=== PATIENT | male | born 1945 | race Caucasian/White ===

== ENCOUNTER → 2016-09-15 | Outpatient (CLI) | payer OTHER ==
[~2016-09-15] MED LIST: OPTIRAY 320 IV PRN
--- NOTE | 2016-09-15 12:17 | DIAGNOSTIC IMAGING REPORT ---
CT OF THE CHEST WITH IV CONTRAST CLINICAL HISTORY: Rectal cancer. COMPARISON STUDY: No previous studies for comparison. TECHNIQUE: Following IV administration of 92 mL of Optiray-320, helical axial images of the chest were obtained. Images were viewed in the axial, sagittal and coronal planes. IV contrast was administered without complication. FINDINGS: No enlarged axillary, mediastinal or hilar lymph nodes are present. The size of the heart is normal. There are no suspicious pulmonary nodules. Mild emphysema is present. No suspicious osseous lesions are present. There is no consolidation. The abdomen and pelvis will be reported separately. However, a 3.2 cm caudate lobe hemangioma is unchanged since CT of October 23, 2015. IMPRESSION: No evidence of metastatic disease within the chest. Electronically signed by: Naeem Veronica M.D. 09/15/2016 12:15 PM Dictated Date/Time: 09/15/2016 12:09 PM
--- NOTE | 2016-09-15 12:28 | DIAGNOSTIC IMAGING REPORT ---
ABDOMEN AND PELVIS CT WITH IV AND ORAL CONTRAST CT DOSE: 593.63 mGy.cm HISTORY: Rectal carcinoma HX OF RECTAL CA TECHNIQUE: Multiaxial CT images of the abdomen and pelvis were performed following the use of intravenous and oral contrast. COMPARISON STUDY: 10/23/2015 FINDINGS: Lung bases remain clear. The hepatic hypodensities and or hemangiomas remains stable Kidneys enhance uniformly. No evidence for hydronephrosis. Spleen pancreas are within normal limits. No significant retroperitoneal or adenopathy. Postoperative changes consistent with colectomy and ileostomy are again noted. Prostate is midline. Bladder is unremarkable. Bowel pattern overall is considered nonobstructive. Bony structures show moderate degenerative change. A true lytic or blastic process is not appreciated. IMPRESSION: 1. Stable evaluation of the abdomen and pelvis compared to the prior study. 2. No evidence for metastatic disease. Electronically signed by: Tree Meredith M.D. 09/15/2016 12:26 PM Dictated Date/Time: 09/15/2016 12:18 PM
== END | disposition home or self-care (01) ==
LOC: C.CTS 11:22
PROVIDERS: ATTEND Colon & Rectal Surgery
DX: C20 Malignant neoplasm of rectum (principal); Z68.24 Body mass index [BMI] 24.0-24.9, adult

== ENCOUNTER → 2016-11-12 | Outpatient (CLI) | payer OTHER ==
[2016-11-12 14:53] LABS: CHOLESTEROL/HDL RATIO 6.3; PROSTATE SPECIFIC ANTIGEN 4.67 ng/ml (0.000-4.000)
== END | disposition home or self-care (01) ==
LOC: C.LABMFLN 09:13
PROVIDERS: ATTEND Family Medicine
DX: E78.00 Pure hypercholesterolemia, unspecified (principal); Z12.5 Encounter for screening for malignant neoplasm of prostate

== ENCOUNTER 2017-10-22 11:07 | Inpatient (IN) | payer OTHER ==
[~2017-10-22] VITALS: Ht 170.2 cm; Wt 72.0 kg
[2017-10-22] MEDS ORDERED: DSY/150 PO (11:44)
[2017-10-22] MEDS ORDERED: ONDANSETRON INJ 2 MG/ML 2 ML VIAL ONE (11:49)
[2017-10-22] MEDS ORDERED: SODIUM CHLORIDE 0.9% 1000ML 1,000 ML IV STA ×2 (11:53)
[2017-10-22] MEDS ORDERED: MoRPHine SULFATE 4 MG/ML 1 ML CARP\\VIAL ONE (11:53)
--- NOTE | 2017-10-22 11:59 | EMERGENCY ROOM VISIT NOTE ---
History Report prepared by Joyce: Alejandro Auguste Under the Supervision of: Dr. Kvng Gamboa D.O. First contact with patient: 11:34 Chief Complaint: VOMITING Stated Complaint: ABDOMINAL BLOATING AND VOMITING SINCE YESTERDAY History of Present Illness The patient is a 72 year old male who presents to the Emergency Room with complaints of persistent vomiting that began last night. The patient is also complaining of centralized abdominal pain and distention. The patient has a history of colorectal cancer with surgery for ostomy placement. His family at bedside notes that he has had several surgeries due to complications of his ostomy bag, but he has never had any bowel obstructions. He is currently not having any output into the bag. Source of History: patient, family Onset: Last night Position: abdomen Quality: other (Vomiting) Timing: other (Persistent) Associated Symptoms: + abdominal pain Review of Systems See HPI for pertinent positives & negatives. A total of 10 systems reviewed and were otherwise negative. Past Medical & Surgical Hx of Colorectal cancer. Family History Omitted secondary to age. Social History Smoking Status: Current Every Day Smoker Marital Status: Housing Status: lives with family Occupation Status: retired Current/Historical Medications Scheduled Trazodone HCl (Trazodone HCl), 150 MG PO HS Allergies Coded Allergies: No Known Allergies (Unverified , 10/22/17) Physical Exam Vital Signs Date Time Temp Pulse Resp B/P (MAP) Pulse Ox O2 Delivery O2 Flow Rate FiO2 10/22/17 13:40 94 Room Air 10/22/17 13:00 74 18 10/22/17 12:33 77 10/22/17 12:04 94 Room Air 10/22/17 11:10 36.7 82 16 133/88 94 Room Air Physical Exam GENERAL: Patient is awake, alert, and very anxious. Appears to be in significant distress. EYES: The conjunctivae are clear. The pupils are round and reactive. EARS, NOSE, MOUTH AND THROAT: The nose is without any evidence of any deformity. Mucous membranes are moist tongue is midline NECK: The neck is nontender and supple. RESPIRATORY: Normal respiratory effort is noted there is no evidence of wheezing rhonchi or rales CARDIOVASCULAR: Regular rate and rhythm noted there no murmurs rubs or gallops normal S1 normal S2 GASTROINTESTINAL: The abdomen moderately distended and diffusely tender. There is an ostomy bag present in the mid lower abdomen with very little output. Bowel sounds are present in all quadrants. Abdomen is nontender MUSCULOSKELETAL/EXTREMITIES: There is no evidence of gross deformity full range of motion is noted in the hips and shoulders SKIN: There is no obvious evidence of any rash. There are no petechiae, pallor or cyanosis noted. NEUROLOGIC: Patient is awake alert and oriented x3 Medical Decision & Procedures ER Provider Diagnostic Interpretation: Radiology results as stated below per my review and radiologist interpretation: ABD/PELVIS NO IV OR ORAL CONT CLINICAL HISTORY: 72 years-old Male presenting with vomiting, history of rectal cancer. TECHNIQUE: Multidetector CT of the abdomen and pelvis was performed without the use of intravenous contrast. IV contrast: None. A dose lowering technique was used consistent with the principles of ALARA (as low as reasonably achievable). COMPARISON: 09/15/2016. CT DOSE (mGy.cm): The estimated cumulative dose is 505.56 mGy.cm. FINDINGS: Entry Level Chemist topogram: Unremarkable. Lung bases: Minimal basilar opacities, likely atelectasis. Normal heart size. No pericardial or pleural effusion. Liver: Normal morphology. Borderline hepatic steatosis. Biliary: No gross biliary ductal dilatation allowing for noncontrast technique. Normal gallbladder. Pancreas: Mild parenchymal atrophy. Spleen: Normal noncontrast appearance. Adrenal glands: Normal noncontrast appearance. Kidneys and ureters: Hypodensity in the left kidney is indeterminate but likely a cyst. Moderate perinephric fat stranding, nonspecific. No hydronephrosis. No nephrolithiasis. Normal ureters. Bladder: Incompletely evaluated secondary to underdistention. Pelvic organs: Prostate enlargement likely secondary to benign prostatic hyperplasia. Bowel: Postsurgical changes of low anterior resection. An enteroenteric anastomosis in the right lower quadrant is widely patent. Postsurgical changes of total proctocolectomy. A right lower quadrant ileostomy is evident. Distal loops of small bowel appear adhesed to the posterior peritoneum in the presacral region. There is dilated small bowel proximal to this. The duodenum and proximal jejunum are nondistended. Dilated bowel tapers fairly smoothly to a less dilated caliber in the right anterior mid abdomen (series 3 image 248). Downstream there is more abrupt transition of small bowel caliber. Given the absence of intravenous and oral contrast, the specific site of transition is somewhat poorly defined but suspected to be in the presacral region. Peritoneal cavity: No free fluid or intraperitoneal gas. Lymph nodes: No gross lymphadenopathy allowing for noncontrast technique. Vasculature: Atherosclerosis of the normal caliber abdominal aorta. Abdominal wall: No fluid or hernia associated with the right lower quadrant ileostomy. Postsurgical changes of the left lower quadrant also evident. Bilateral gynecomastia. Musculoskeletal: Degenerative changes of the spine. IMPRESSION: 1. Postsurgical changes of total proctocolectomy with a right lower quadrant ileostomy. Evidence of a small bowel obstruction likely due to adhesions in the pelvis in the presacral region. No convincing evidence of a closed loop obstruction. Enteroenteric anastomosis widely patent. No evidence of perforation. Electronically signed by: Barry Clay M.D. 10/22/2017 12:36 PM Dictated Date/Time: 10/22/2017 12:25 PM CHEST ONE VIEW PORTABLE CLINICAL HISTORY: 72 years-old Male presenting with EVALUATE ALTERED MENTAL STATUS/WEAKNESS. TECHNIQUE: Portable upright AP view of the chest was obtained. COMPARISON: Chest CT from 09/15/2016. FINDINGS: Cardiomediastinal silhouette normal. No focal opacity. No large effusion or pneumothorax. Degenerative changes of the bilateral glenohumeral joints. Upper abdomen normal. IMPRESSION: 1. No acute cardiopulmonary disease. Electronically signed by: Barry Clay M.D. 10/22/2017 12:13 PM Dictated Date/Time: 10/22/2017 12:12 PM Laboratory Results 10/22/17 12:00 Red Blood Count 5.67, Mean Corpuscular Volume 87.3, Mean Corpuscular Hemoglobin 31.0, Mean Corpuscular Hemoglobin Concent 35.6, Mean Platelet Volume 10.0, Neutrophils (%) (Auto) 78.0, Lymphocytes (%) (Auto) 11.9, Monocytes (%) (Auto) 8.5, Eosinophils (%) (Auto) 1.1, Basophils (%) (Auto) 0.2, Neutrophils # (Auto) 9.80, Lymphocytes # (Auto) 1.49, Monocytes # (Auto) 1.07, Eosinophils # (Auto) 0.14, Basophils # (Auto) 0.02 10/22/17 12:00 Test 10/22/17 12:00 White Blood Count 12.56 K/uL (4.8-10.8) Red Blood Count 5.67 M/uL (4.7-6.1) Hemoglobin 17.6 g/dL (14.0-18.0) Hematocrit 49.5 % (42-52) Mean Corpuscular Volume 87.3 fL (80-100) Mean Corpuscular Hemoglobin 31.0 pg (25-34) Mean Corpuscular Hemoglobin Concent 35.6 g/dl (32-36) Platelet Count 221 K/uL (130-400) Mean Platelet Volume 10.0 fL (7.4-10.4) Neutrophils (%) (Auto) 78.0 % Lymphocytes (%) (Auto) 11.9 % Monocytes (%) (Auto) 8.5 % Eosinophils (%) (Auto) 1.1 % Basophils (%) (Auto) 0.2 % Neutrophils # (Auto) 9.80 K/uL (1.4-6.5) Lymphocytes # (Auto) 1.49 K/uL (1.2-3.4) Monocytes # (Auto) 1.07 K/uL (0.11-0.59) Eosinophils # (Auto) 0.14 K/uL (0-0.5) Basophils # (Auto) 0.02 K/uL (0-0.2) RDW Standard Deviation 42.2 fL (36.4-46.3) RDW Coefficient of Variation 13.3 % (11.5-14.5) Immature Granulocyte % (Auto) 0.3 % Immature Granulocyte # (Auto) 0.04 K/uL (0.00-0.02) Prothrombin Time 10.4 SECONDS (9.0-12.0) Prothromb Time International Ratio 1.0 (0.9-1.1) Activated Partial Thromboplast Time 28.2 SECONDS (21.0-31.0) Partial Thromboplastin Ratio 1.1 Anion Gap 7.0 mmol/L (3-11) Est Creatinine Clear Calc Drug Dose 49.3 ml/min Estimated GFR () 66.6 Estimated GFR (Non- 57.5 BUN/Creatinine Ratio 10.6 (10-20) Calcium Level 10.2 mg/dl (8.5-10.1) Phosphorus Level 2.6 mg/dl (2.5-4.9) Magnesium Level 2.4 mg/dl (1.8-2.4) Total Bilirubin 0.7 mg/dl (0.2-1) Direct Bilirubin 0.2 mg/dl (0-0.2) Aspartate Amino Transf (AST/SGOT) 15 U/L (15-37) Alanine Aminotransferase (ALT/SGPT) 27 U/L (12-78) Alkaline Phosphatase 98 U/L (45-117) Total Creatine Kinase 87 U/L (39-308) Creatine Kinase MB 2.4 ng/ml (0.5-3.6) Creatine Kinase MB Ratio 2.8 (0-3.0) Troponin I < 0.015 ng/ml (0-0.045) Pro-B-Type Natriuretic Peptide 123 pg/ml (0-900) Total Protein 9.1 gm/dl (6.4-8.2) Albumin 4.3 gm/dl (3.4-5.0) Lipase 99 U/L (73-393) Thyroid Stimulating Hormone (TSH) 0.887 uIu/ml (0.300-4.500) Laboratory results per my review. Medications Administered Medications (Trade) Dose Ordered Sig/Alanna Route Start Time Stop Time Status Last Admin Dose Admin Ondansetron HCl (Zofran Inj) 4 mg STK-MED ONCE .ROUTE 10/22/17 11:49 10/22/17 11:50 DC 10/22/17 11:49 4 MG Morphine Sulfate (MoRPHine SULFATE INJ) 4 mg STK-MED ONCE .ROUTE 10/22/17 11:53 10/22/17 11:54 DC 10/22/17 11:53 4 MG Sodium Chloride 1,000 ml @ 999 mls/hr Q1H1M STAT IV 10/22/17 11:53 10/22/17 12:53 DC 10/22/17 11:53 999 MLS/HR ECG Per My Interpretation Indication: vomiting Rate (beats per minute): 79 Rhythm: sinus rhythm Findings: PVC, ST depression (Lateral) Comparison ECG Date: no prior available ED Course 1144: The patient was evaluated in room B10. A complete history and physical examination were performed. 1149: Ordered Zofran 4 mg. 1153: Ordered Sodium Chloride 1000 mL @ 250 mL/hr IV, Sodium Chloride 1000 mL @ 999 mL/hr IV. 1153: Ordered Morphine Sulfate 1308: I discussed the case with Dr. Socorro Moreno - [facility]. She will evaluate the patient, but requests I discuss the case with Surgery first. 1326: I discussed with Dr. Ellen Butler. He said he will follow in consultation. Medical Decision Differential diagnosis: Etiologies such as gastroenteritis, food borne illness, infections, appendicitis , diverticulitis, inflammatory bowel disease, obstruction, GI bleed, biliary pathology, as well as others were entertained. Nursing notes reviewed. The patient is a 72-year-old male who presented to the emergency department for an evaluation of nausea and vomiting. The patient had very distended abdomen. He has an ostomy for previous surgery for colorectal cancer. The patient has noticed decreased output in his ostomy. The patient was found to have signs of bowel obstruction. He was treated with IV fluids IV pain medicine and IV anti- medics. On subsequent reevaluation he was significantly improved. I discussed his case with the on-call [facility] hospitalist as well as the on-call general surgeon. Medication Reconcilliation Current Medication List: was personally reviewed by me Blood Pressure Screening Patient's blood pressure: Normal blood pressure Consults Time Called: 1305 Consulting Physician: Dr. Socorro Braga Returned Call: 1308 I discussed the case with Dr. Socorro Braga. She will evaluate the patient, but requests I discuss the case with Surgery first. Additional Consults: Time Called: 1310 Consulted Physician: Dr. Ellen Butler Returned Call: 1326 Additional Comments: I discussed with Dr. Ellen Butler. He said he will follow in consultation. Impression Primary Impression: SBO (small bowel obstruction) Additional Impressions: Abdominal pain Nausea, vomiting, and diarrhea Scribe Attestation The scribe's documentation has been prepared under my direction and personally reviewed by me in its entirety. I confirm that the note above accurately reflects all work, treatment, procedures, and medical decision making performed by me. Departure Information Dispostion Being Evaluated By Hospitalist Kingston Orta M.D. (PCP) Patient Instructions My [facility] Problem Qualifiers Additional Impressions: Abdominal pain Abdominal location: generalized Qualified Codes: R10.84 - Generalized abdominal pain
[2017-10-22] MEDS ORDERED: MoRPHine SULFATE 4 MG/ML 1 ML CARP\\VIAL IV PRN ×2 (12:00→14:15)
[2017-10-22 12:10] LABS: BASO % 0.2 %; BASO ABS # 0.02 K/uL (0-0.2); EOS % 1.1 %; EOS ABS # 0.14 K/uL (0-0.5); HEMATOCRIT 49.5 % (42-52); HEMOGLOBIN 17.6 g/dL (14.0-18.0); IG# 0.04 K/uL (0.00-0.02); LYMPH % 11.9 %; LYMPH ABS # 1.49 K/uL (1.2-3.4); MEAN CELL VOLUME 87.3 fL (80-100); MEAN CORPUSCULAR HGB CONC 35.6 g/dl (32-36); MONO % 8.5 %; MONO ABS # 1.07 K/uL (0.11-0.59); PLATELET COUNT 221 K/uL (130-400); RED CELL DISTRIBUTION WIDTH CV 13.3 % (11.5-14.5); RED CELL DISTRIBUTION WIDTH SD 42.2 fL (36.4-46.3); WHITE BLOOD COUNT 12.56 K/uL (4.8-10.8)
--- NOTE | 2017-10-22 12:15 | DIAGNOSTIC IMAGING REPORT ---
CHEST ONE VIEW PORTABLE CLINICAL HISTORY: 72 years-old Male presenting with EVALUATE ALTERED MENTAL STATUS/WEAKNESS. TECHNIQUE: Portable upright AP view of the chest was obtained. COMPARISON: Chest CT from 09/15/2016. FINDINGS: Cardiomediastinal silhouette normal. No focal opacity. No large effusion or pneumothorax. Degenerative changes of the bilateral glenohumeral joints. Upper abdomen normal. IMPRESSION: 1. No acute cardiopulmonary disease. Electronically signed by: Barry Clay M.D. 10/22/2017 12:13 PM Dictated Date/Time: 10/22/2017 12:12 PM
[2017-10-22 12:19] LABS: PTT PATIENT 28.2 SECONDS (21.0-31.0)
[2017-10-22 12:37] LABS: ALBUMIN 4.3 gm/dl (3.4-5.0); ALKALINE PHOSPHATASE 98 U/L (45-117); ALT/SGPT 27 U/L (12-78); AST/SGOT 15 U/L (15-37); BLOOD UREA NITROGEN 13 mg/dl (7-18); CALCIUM 10.2 mg/dl (8.5-10.1); CARBON DIOXIDE 25 mmol/L (21-32); CKMB 2.4 ng/ml (0.5-3.6); CREATININE 1.23 mg/dl (0.60-1.40); GLUCOSE 114 mg/dl (70-99); LIPASE 99 U/L (73-393); PHOSPHORUS 2.6 mg/dl (2.5-4.9); POTASSIUM 3.7 mmol/L (3.5-5.1); SODIUM 137 mmol/L (136-145); TOTAL PROTEIN 9.1 gm/dl (6.4-8.2)
--- NOTE | 2017-10-22 12:37 | DIAGNOSTIC IMAGING REPORT ---
ABD/PELVIS NO IV OR ORAL CONT CLINICAL HISTORY: 72 years-old Male presenting with vomiting, history of rectal cancer. TECHNIQUE: Multidetector CT of the abdomen and pelvis was performed without the use of intravenous contrast. IV contrast: None. A dose lowering technique was used consistent with the principles of ALARA (as low as reasonably achievable). COMPARISON: 09/15/2016. CT DOSE (mGy.cm): The estimated cumulative dose is 505.56 mGy.cm. FINDINGS: Wafer Polisher topogram: Unremarkable. Lung bases: Minimal basilar opacities, likely atelectasis. Normal heart size. No pericardial or pleural effusion. Liver: Normal morphology. Borderline hepatic steatosis. Biliary: No gross biliary ductal dilatation allowing for noncontrast technique. Normal gallbladder. Pancreas: Mild parenchymal atrophy. Spleen: Normal noncontrast appearance. Adrenal glands: Normal noncontrast appearance. Kidneys and ureters: Hypodensity in the left kidney is indeterminate but likely a cyst. Moderate perinephric fat stranding, nonspecific. No hydronephrosis. No nephrolithiasis. Normal ureters. Bladder: Incompletely evaluated secondary to underdistention. Pelvic organs: Prostate enlargement likely secondary to benign prostatic hyperplasia. Bowel: Postsurgical changes of low anterior resection. An enteroenteric anastomosis in the right lower quadrant is widely patent. Postsurgical changes of total proctocolectomy. A right lower quadrant ileostomy is evident. Distal loops of small bowel appear adhesed to the posterior peritoneum in the presacral region. There is dilated small bowel proximal to this. The duodenum and proximal jejunum are nondistended. Dilated bowel tapers fairly smoothly to a less dilated caliber in the right anterior mid abdomen (series 3 image 248). Downstream there is more abrupt transition of small bowel caliber. Given the absence of intravenous and oral contrast, the specific site of transition is somewhat poorly defined but suspected to be in the presacral region. Peritoneal cavity: No free fluid or intraperitoneal gas. Lymph nodes: No gross lymphadenopathy allowing for noncontrast technique. Vasculature: Atherosclerosis of the normal caliber abdominal aorta. Abdominal wall: No fluid or hernia associated with the right lower quadrant ileostomy. Postsurgical changes of the left lower quadrant also evident. Bilateral gynecomastia. Musculoskeletal: Degenerative changes of the spine. IMPRESSION: 1. Postsurgical changes of total proctocolectomy with a right lower quadrant ileostomy. Evidence of a small bowel obstruction likely due to adhesions in the pelvis in the presacral region. No convincing evidence of a closed loop obstruction. Enteroenteric anastomosis widely patent. No evidence of perforation. Electronically signed by: Barry Clay M.D. 10/22/2017 12:36 PM Dictated Date/Time: 10/22/2017 12:25 PM
[2017-10-22 13:40] VITALS: O2SAT 94; Ht 170.2 cm; Wt 72.0 kg
[2017-10-22] MEDS ORDERED: ONDANSETRON INJ 2 MG/ML 2 ML VIAL IV PRN (14:15)
[2017-10-22] MEDS ORDERED: LORAZEPAM 2 MG/ML 1 ML VIAL IV PRN (14:15)
--- NOTE | 2017-10-22 14:37 | History and Physical ---
History & Physical Date & Time of Service: October 22, 2017 at 14:26 Chief Complaint: Abdominal Bloating And Vomiting Since Yesterday Primary Care Physician: Kingston Fairbanks M.D. History of Present Illness Source: patient Mr. Lara is a pleasant 72yo C male with history of colorectal cancer diagnosed in 2013 s/p colectomy with end ileostomy placement. In 2014 patient states he had an infection which and had his ileostomy transgerred to the right side. He also reports 2 additional ostomy revisions one in 2015 and one in 2016. Patient is followed at [place] and has had all his surgeries performed there. Mr. Lara presents today with abdominal pain, nausea, vomiting and distention since last evening. He endorses one episode of nonbloody/nonbilious vomiting last evening and two episodes today. He states he has had no output from his ileostomy since appx 16:00 yesterday. Patient has never had a bowel obstruction. ER Course: Morphine 4mg IV, NSS x 1 liter, Zofran x 4mg Past Medical/Surgical History Past Medical History: Colorectal cancer diagnosed 2013 Past Surgical History: Colectomy with ileostomy placement Ileostomy revision x 3 (2014, 2015, 2016) Family History Cancer Social History Smoking Status: Current Every Day Smoker Smokeless Tobacco Use: No Alcohol Use: none Drug Use: none Marital Status: Housing status: lives with family Occupational Status: retired Allergies Coded Allergies: No Known Allergies (Unverified , 10/22/17) Home Medications Scheduled Trazodone HCl (Trazodone HCl), 150 MG PO HS Review of Systems Constitutional: No fever, No chills, No weight loss, No weakness, No fatigue Eyes: No worsening of vision, No diplopia ENT: No hearing loss, No sore throat, No trouble swallowing Respiratory: No cough, No sputum, No wheezing, No shortness of breath Cardiovascular: No chest pain, No palpitations Abdomen: + pain, + nausea, + vomiting, No diarrhea, No constipation, No GI bleeding Musculoskeletal: No joint pain, No muscle pain Genitourinary - Male: No dysuria, No urinary frequency Neurologic: No weakness Hematologic / Lymphatic: No abnormal bleeding/bruising Integumentary: No rash, No itch Physical Exam Vital Signs Date Time Temp Pulse Resp B/P (MAP) Pulse Ox O2 Delivery O2 Flow Rate FiO2 10/22/17 13:40 94 Room Air 10/22/17 13:00 74 18 10/22/17 12:33 77 10/22/17 12:04 94 Room Air 10/22/17 11:10 36.7 82 16 133/88 94 Room Air General Appearance: WD/WN, no apparent distress Head: normocephalic, atraumatic Eyes: normal inspection, PERRL, EOMI, sclerae normal ENT: normal ENT inspection, hearing grossly normal, pharynx normal, + pertinent finding (adentulous) Neck: supple, no adenopathy, thyroid normal, trachea midline Respiratory/Chest: chest non-tender, lungs clear, normal breath sounds, no respiratory distress, no accessory muscle use Cardiovascular: regular rate, rhythm, no edema, no gallop, no JVD, no murmur, normal peripheral pulses, + extra beats Abdomen/GI: + pertinent finding (abdomen flat, mildly tender with palpation, no rebound or guarding, +hyperactive bowel sounds, ileostomy present right side , scant amount of liquid yellow output, no leak/erythema/edema) Back: normal inspection Extremities/Musculoskelatal: normal inspection, no calf tenderness, no pedal edema Neurologic/Psych: normal mood/affect Skin: normal color, warm/dry, no rash Diagnostics Laboratory Results Results Past 24 Hours Test 10/22/17 12:00 Range/Units White Blood Count 12.56 4.8-10.8 K/uL Red Blood Count 5.67 4.7-6.1 M/uL Hemoglobin 17.6 14.0-18.0 g/dL Hematocrit 49.5 42-52 % Mean Corpuscular Volume 87.3 80-100 fL Mean Corpuscular Hemoglobin 31.0 25-34 pg Mean Corpuscular Hemoglobin Concent 35.6 32-36 g/dl Platelet Count 221 130-400 K/uL Mean Platelet Volume 10.0 7.4-10.4 fL Neutrophils (%) (Auto) 78.0 % Lymphocytes (%) (Auto) 11.9 % Monocytes (%) (Auto) 8.5 % Eosinophils (%) (Auto) 1.1 % Basophils (%) (Auto) 0.2 % Neutrophils # (Auto) 9.80 1.4-6.5 K/uL Lymphocytes # (Auto) 1.49 1.2-3.4 K/uL Monocytes # (Auto) 1.07 0.11-0.59 K/uL Eosinophils # (Auto) 0.14 0-0.5 K/uL Basophils # (Auto) 0.02 0-0.2 K/uL RDW Standard Deviation 42.2 36.4-46.3 fL RDW Coefficient of Variation 13.3 11.5-14.5 % Immature Granulocyte % (Auto) 0.3 % Immature Granulocyte # (Auto) 0.04 0.00-0.02 K/uL Prothrombin Time 10.4 9.0-12.0 SECONDS Prothromb Time International Ratio 1.0 0.9-1.1 Activated Partial Thromboplast Time 28.2 21.0-31.0 SECONDS Partial Thromboplastin Ratio 1.1 Sodium Level 137 136-145 mmol/L Potassium Level 3.7 3.5-5.1 mmol/L Chloride Level 105 98-107 mmol/L Carbon Dioxide Level 25 21-32 mmol/L Anion Gap 7.0 3-11 mmol/L Blood Urea Nitrogen 13 7-18 mg/dl Creatinine 1.23 0.60-1.40 mg/dl Est Creatinine Clear Calc Drug Dose 49.3 ml/min Estimated GFR () 66.6 Estimated GFR (Non- 57.5 BUN/Creatinine Ratio 10.6 10-20 Random Glucose 114 70-99 mg/dl Calcium Level 10.2 8.5-10.1 mg/dl Phosphorus Level 2.6 2.5-4.9 mg/dl Magnesium Level 2.4 1.8-2.4 mg/dl Total Bilirubin 0.7 0.2-1 mg/dl Direct Bilirubin 0.2 0-0.2 mg/dl Aspartate Amino Transf (AST/SGOT) 15 15-37 U/L Alanine Aminotransferase (ALT/SGPT) 27 12-78 U/L Alkaline Phosphatase 98 45-117 U/L Total Creatine Kinase 87 39-308 U/L Creatine Kinase MB 2.4 0.5-3.6 ng/ml Creatine Kinase MB Ratio 2.8 0-3.0 Troponin I < 0.015 0-0.045 ng/ml Pro-B-Type Natriuretic Peptide 123 0-900 pg/ml Total Protein 9.1 6.4-8.2 gm/dl Albumin 4.3 3.4-5.0 gm/dl Lipase 99 73-393 U/L Thyroid Stimulating Hormone (TSH) 0.887 0.300-4.500 uIu/ml Diagnostic Radiology CHEST ONE VIEW PORTABLE CLINICAL HISTORY: 72 years-old Male presenting with EVALUATE ALTERED MENTAL STATUS/WEAKNESS. TECHNIQUE: Portable upright AP view of the chest was obtained. COMPARISON: Chest CT from 09/15/2016. FINDINGS: Cardiomediastinal silhouette normal. No focal opacity. No large effusion or pneumothorax. Degenerative changes of the bilateral glenohumeral joints. Upper abdomen normal. IMPRESSION: 1. No acute cardiopulmonary disease. Electronically signed by: Barry Clay M.D. 10/22/2017 12:13 PM ABD/PELVIS NO IV OR ORAL CONT CLINICAL HISTORY: 72 years-old Male presenting with vomiting, history of rectal cancer. TECHNIQUE: Multidetector CT of the abdomen and pelvis was performed without the use of intravenous contrast. IV contrast: None. A dose lowering technique was used consistent with the principles of ALARA (as low as reasonably achievable). COMPARISON: 09/15/2016. CT DOSE (mGy.cm): The estimated cumulative dose is 505.56 mGy.cm. FINDINGS: Coper Hand topogram: Unremarkable. Lung bases: Minimal basilar opacities, likely atelectasis. Normal heart size. No pericardial or pleural effusion. Liver: Normal morphology. Borderline hepatic steatosis. Biliary: No gross biliary ductal dilatation allowing for noncontrast technique. Normal gallbladder. Pancreas: Mild parenchymal atrophy. Spleen: Normal noncontrast appearance. Adrenal glands: Normal noncontrast appearance. Kidneys and ureters: Hypodensity in the left kidney is indeterminate but likely a cyst. Moderate perinephric fat stranding, nonspecific. No hydronephrosis. No nephrolithiasis. Normal ureters. Bladder: Incompletely evaluated secondary to underdistention. Pelvic organs: Prostate enlargement likely secondary to benign prostatic hyperplasia. Bowel: Postsurgical changes of low anterior resection. An enteroenteric anastomosis in the right lower quadrant is widely patent. Postsurgical changes of total proctocolectomy. A right lower quadrant ileostomy is evident. Distal loops of small bowel appear adhesed to the posterior peritoneum in the presacral region. There is dilated small bowel proximal to this. The duodenum and proximal jejunum are nondistended. Dilated bowel tapers fairly smoothly to a less dilated caliber in the right anterior mid abdomen (series 3 image 248). Downstream there is more abrupt transition of small bowel caliber. Given the absence of intravenous and oral contrast, the specific site of transition is somewhat poorly defined but suspected to be in the presacral region. Peritoneal cavity: No free fluid or intraperitoneal gas. Lymph nodes: No gross lymphadenopathy allowing for noncontrast technique. Vasculature: Atherosclerosis of the normal caliber abdominal aorta. Abdominal wall: No fluid or hernia associated with the right lower quadrant ileostomy. Postsurgical changes of the left lower quadrant also evident. Bilateral gynecomastia. Musculoskeletal: Degenerative changes of the spine. IMPRESSION: 1. Postsurgical changes of total proctocolectomy with a right lower quadrant ileostomy. Evidence of a small bowel obstruction likely due to adhesions in the pelvis in the presacral region. No convincing evidence of a closed loop obstruction. Enteroenteric anastomosis widely patent. No evidence of perforation. Electronically signed by: Barry Clay M.D. 10/22/2017 12:36 PM EKG The study demonstrates NSR with PVC, normal axis and intervals, no acute evidence of ischemia Impression Assessment and Plan 72 yo C male with history of colorectal cancer s/p colectomy with ileostomy placement, s/p multiple revisions to ileostomy presenting with 1 day of nausea/ vomiting/abdominal pain and distention and decreased output from ileostomy. CT imaging confirms presence of SBO most likely secondary to adhesions. 1. SBO patient appears comfortable at present. Nausea controlled -Admit to general medical floor -Pain control with Morphine 2mg IV q 4 hoursPRN -Nausea control with Zofran PRN -Ambulation as tolerated -NSS at 100mL/hr x 2 liters -Monitor electrolytes and replete as needed -Surgical consultation appreciate their assistance with this case -Will place NGT if patient has persistent nausea/vomiting and worsening distension 2. Insomnia -Patient is on Trazodone 150mg po qHS for sleep. Will hold PO medications at this time. -Ativan 0.5mg IV qHS PRN insomnia 3. Tobacco abuse - patient smokes 1/2 ppd -Nicotine patch daily 4. F/E/N NSS at 100mL/hr x 2 liters. Monitor electrolytes and replete as needed. NPO for now. 5. Ppx Lovenox for DVT prophylaxis 6. . Code DNR per discussion with patient 7. Disposition will admit to general medical floor for SBO, Surgical consultation. Family at bedside, updated on diagnosis and plan Advanced Directives Existing Living Will: Yes Existing Power of Transitional Care Nurse: No Resuscitation Status DNR VTE Prophylaxis Will order VTE Prophylaxis: Yes
[2017-10-22 15:50] VITALS: O2SAT 96
[2017-10-22 16:10] VITALS: BP 158/71; PULSE 68; TEMP 37; O2SAT 95
[2017-10-22] MEDS: SODIUM CHLORIDE 0.9% 1000ML 1,000 ML IV SCH (17:38)
[2017-10-22] MEDS ORDERED: NURSING VERBAL MED ORDER ONE (18:45)
[2017-10-22] MEDS ORDERED: PANTOprazole INJ 40 MG in SYRINGE 0 ML IV SCH (18:45)
[2017-10-22] MEDS: NICOTINE 14 MG/24 HR TDSY TD SCH (19:59)
--- NOTE | 2017-10-22 21:16 | Pre-Operative Consultation ---
History General Date of Service: October 22, 2017. HPI HPI: The patient is a 72 year old male being seen for partial SBO versus ileus. He was admitted through the Emergency Room with complaints of persistent vomiting that began last night. The patient was complaining of centralized abdominal pain and distention. He currently has no pain or nausea and nursing has emptied his ostomy bag three times. The patient has a history of colorectal cancer with surgery for ostomy placement. A CT scan was suggestive of SBO. Historian: patient Procedure Urgency: Acute Risk Assessment Daily beta brandon use?: No Problem List Medical Problems: (1) Abdominal pain Status: Acute (2) Nausea, vomiting, and diarrhea Status: Acute (3) SBO (small bowel obstruction) Status: Acute Medical & Surgical History Past Medical History: anxiety, cancer - colon Past Surgical History: colectomy (w/ostomy), other (revisions of ostomy times three) Family History Family History: no pertinent family hx Social History Smoking Status: Current Every Day Smoker Drug Use: none Marital status: Housing status: lives with family Occupation status: retired Allergies Allergies: Coded Allergies: No Known Allergies (Unverified , 10/22/17) Medications Current Inpatient Medications Current Inpatient Medications Medications (Trade) Dose Ordered Sig/Alanna Route Start Time Stop Time Status Last Admin Dose Admin Enoxaparin Sodium (Lovenox Inj) 40 mg Q24H SQ 10/22/17 22:00 11/21/17 21:59 Ondansetron HCl (Zofran Inj) 4 mg Q6H PRN IV 10/22/17 14:15 11/21/17 14:14 Morphine Sulfate (MoRPHine SULFATE INJ) 2 mg Q4 PRN IV 10/22/17 14:15 11/05/17 14:14 Sodium Chloride 1,000 ml @ 100 mls/hr Q10H IV 10/22/17 17:00 10/23/17 12:59 10/22/17 17:38 100 MLS/HR Lorazepam (Ativan Inj) 0.5 mg HS PRN IV 10/22/17 14:15 11/21/17 14:14 Nicotine (Nicoderm Cq 14MG Patch) 1 patch QAM TD 10/23/17 09:00 11/22/17 08:59 10/22/17 19:59 1 PATCH Miscellaneous (Remove Nicoderm Patch) 1 ea HS N/A 10/22/17 21:00 11/21/17 20:59 Lorazepam 0.5 mg/ Syringe 1 ml @ 1 mls/min HS PRN IV 10/22/17 17:00 11/21/17 16:59 Pantoprazole Sodium 40 mg/ Syringe 10 ml @ 5 mls/min DAILY@11 IV 10/23/17 11:00 11/22/17 10:59 Review of Systems Review of Systems Constitutional: denies chills, denies diaphoresis, denies fever, denies weakness Eyes: reports: no symptoms ENT: reports: no symptoms reported Cardiovascular: denies: chest pain, chest tightness, chest pressure, palpitations Respiratory: denies: cough, orthopnea, short of breath, stridor, wheezing Gastrointestinal: denies abdominal pain, denies constipation, denies diarrhea, denies nausea, denies vomiting, other (ostomy working) Genitourinary - Male: reports: no symptoms Musculoskeletal: denies back pain, denies joint pain, denies joint swelling, denies muscle stiffness, denies neck pain Integumentary: denies change in hair/nails, denies dryness, denies lumps, denies rash Neurologic: reports: no symptoms Psychiatric: reports: no symptoms Hematologic / Lymphatic: no symptoms Allergic / Immunologic: no symptoms Physical Exam Physical Exam General Appearance: + WD/WN, No distress Ears, Nose, Throat: + normal ENT inspection Neck: No abnormal inspection, No tracheal deviation, No lymphadenophy, No stiffness, No tenderness Respiratory: No chest tenderness, No decreased breath sounds, No rhonchi, No stridor, No wheezing Cardiovascular: No JVD, No tachycardia, No gallop/S3, No diastolic murmur, No gallop/S4, No bradycardia, No systolic murmur Abdomen: + other (ostomy OK), No abnormal bowel sounds, No tenderness, No distension, No hernia, No organomegaly, No guarding Extremities: No deformity, No swelling, No calf tenderness, No inflammation Neurologic/Psychiatric: No motor deficit/weakness, No disorientation, No sensory deficit Skin Characteristics: No diaphoresis, No pallor, No jaundice, No rash Lymphatic: No abnormal adenopathy Diagnostics Labs Labs Results Past 24 Hours Test 10/22/17 12:00 10/22/17 17:15 Range/Units White Blood Count 12.56 4.8-10.8 K/uL Red Blood Count 5.67 4.7-6.1 M/uL Hemoglobin 17.6 14.0-18.0 g/dL Hematocrit 49.5 42-52 % Mean Corpuscular Volume 87.3 80-100 fL Mean Corpuscular Hemoglobin 31.0 25-34 pg Mean Corpuscular Hemoglobin Concent 35.6 32-36 g/dl Platelet Count 221 130-400 K/uL Mean Platelet Volume 10.0 7.4-10.4 fL Neutrophils (%) (Auto) 78.0 % Lymphocytes (%) (Auto) 11.9 % Monocytes (%) (Auto) 8.5 % Eosinophils (%) (Auto) 1.1 % Basophils (%) (Auto) 0.2 % Neutrophils # (Auto) 9.80 1.4-6.5 K/uL Lymphocytes # (Auto) 1.49 1.2-3.4 K/uL Monocytes # (Auto) 1.07 0.11-0.59 K/uL Eosinophils # (Auto) 0.14 0-0.5 K/uL Basophils # (Auto) 0.02 0-0.2 K/uL RDW Standard Deviation 42.2 36.4-46.3 fL RDW Coefficient of Variation 13.3 11.5-14.5 % Immature Granulocyte % (Auto) 0.3 % Immature Granulocyte # (Auto) 0.04 0.00-0.02 K/uL Prothrombin Time 10.4 9.0-12.0 SECONDS Prothromb Time International Ratio 1.0 0.9-1.1 Activated Partial Thromboplast Time 28.2 21.0-31.0 SECONDS Partial Thromboplastin Ratio 1.1 Sodium Level 137 136-145 mmol/L Potassium Level 3.7 3.5-5.1 mmol/L Chloride Level 105 98-107 mmol/L Carbon Dioxide Level 25 21-32 mmol/L Anion Gap 7.0 3-11 mmol/L Blood Urea Nitrogen 13 7-18 mg/dl Creatinine 1.23 0.60-1.40 mg/dl Est Creatinine Clear Calc Drug Dose 49.3 ml/min Estimated GFR () 66.6 Estimated GFR (Non- 57.5 BUN/Creatinine Ratio 10.6 10-20 Random Glucose 114 70-99 mg/dl Calcium Level 10.2 8.5-10.1 mg/dl Phosphorus Level 2.6 2.5-4.9 mg/dl Magnesium Level 2.4 1.8-2.4 mg/dl Total Bilirubin 0.7 0.2-1 mg/dl Direct Bilirubin 0.2 0-0.2 mg/dl Aspartate Amino Transf (AST/SGOT) 15 15-37 U/L Alanine Aminotransferase (ALT/SGPT) 27 12-78 U/L Alkaline Phosphatase 98 45-117 U/L Total Creatine Kinase 87 39-308 U/L Creatine Kinase MB 2.4 0.5-3.6 ng/ml Creatine Kinase MB Ratio 2.8 0-3.0 Troponin I < 0.015 0-0.045 ng/ml Pro-B-Type Natriuretic Peptide 123 0-900 pg/ml Total Protein 9.1 6.4-8.2 gm/dl Albumin 4.3 3.4-5.0 gm/dl Lipase 99 73-393 U/L Thyroid Stimulating Hormone (TSH) 0.887 0.300-4.500 uIu/ml Urine Color DK YELLOW Urine Appearance CLOUDY CLEAR Urine pH 5.0 4.5-7.5 Urine Specific [place] 1.024 1.000-1.030 Urine Protein NEG NEG Urine Glucose (UA) NEG NEG Urine Ketones TRACE NEG Urine Occult Blood NEG NEG Urine Nitrite NEG NEG Urine Bilirubin NEG NEG Urine Urobilinogen NEG NEG Urine Leukocyte Esterase NEG NEG Urine WBC (Auto) 1-5 0-5 /hpf Urine RBC (Auto) 0-4 0-4 /hpf Urine Hyaline Casts (Auto) 0 0-5 /lpf Urine Epithelial Cells (Auto) 10-20 0-5 /lpf Urine Bacteria (Auto) NEG NEG Urine Mucus PRESENT NONE PRSENT Diagnostic Radiology Diagnostic Radiology ABD/PELVIS NO IV OR ORAL CONT CLINICAL HISTORY: 72 years-old Male presenting with vomiting, history of rectal cancer. TECHNIQUE: Multidetector CT of the abdomen and pelvis was performed without the use of intravenous contrast. IV contrast: None. A dose lowering technique was used consistent with the principles of ALARA (as low as reasonably achievable). COMPARISON: 09/15/2016. CT DOSE (mGy.cm): The estimated cumulative dose is 505.56 mGy.cm. FINDINGS: Treasury Agent topogram: Unremarkable. Lung bases: Minimal basilar opacities, likely atelectasis. Normal heart size. No pericardial or pleural effusion. Liver: Normal morphology. Borderline hepatic steatosis. Biliary: No gross biliary ductal dilatation allowing for noncontrast technique. Normal gallbladder. Pancreas: Mild parenchymal atrophy. Spleen: Normal noncontrast appearance. Adrenal glands: Normal noncontrast appearance. Kidneys and ureters: Hypodensity in the left kidney is indeterminate but likely a cyst. Moderate perinephric fat stranding, nonspecific. No hydronephrosis. No nephrolithiasis. Normal ureters. Bladder: Incompletely evaluated secondary to underdistention. Pelvic organs: Prostate enlargement likely secondary to benign prostatic hyperplasia. Bowel: Postsurgical changes of low anterior resection. An enteroenteric anastomosis in the right lower quadrant is widely patent. Postsurgical changes of total proctocolectomy. A right lower quadrant ileostomy is evident. Distal loops of small bowel appear adhesed to the posterior peritoneum in the presacral region. There is dilated small bowel proximal to this. The duodenum and proximal jejunum are nondistended. Dilated bowel tapers fairly smoothly to a less dilated caliber in the right anterior mid abdomen (series 3 image 248). Downstream there is more abrupt transition of small bowel caliber. Given the absence of intravenous and oral contrast, the specific site of transition is somewhat poorly defined but suspected to be in the presacral region. Peritoneal cavity: No free fluid or intraperitoneal gas. Lymph nodes: No gross lymphadenopathy allowing for noncontrast technique. Vasculature: Atherosclerosis of the normal caliber abdominal aorta. Abdominal wall: No fluid or hernia associated with the right lower quadrant ileostomy. Postsurgical changes of the left lower quadrant also evident. Bilateral gynecomastia. Musculoskeletal: Degenerative changes of the spine. IMPRESSION: 1. Postsurgical changes of total proctocolectomy with a right lower quadrant ileostomy. Evidence of a small bowel obstruction likely due to adhesions in the pelvis in the presacral region. No convincing evidence of a closed loop obstruction. Enteroenteric anastomosis widely patent. No evidence of perforation. Impression Assessment and Plan Assessment and Plan partiel SBO versus ileus, resolving -IVF -NPO -serial exams/KUB -appears to have resolved -ced begin po in AM
[2017-10-22] MEDS: ENOXAPARIN 40 MG/0.4 ML SYR SQ SCH (22:22)
[2017-10-22] MEDS ORDERED: SODIUM CHLORIDE 0.9% 500ML 500 ML IV ONE (23:00)
[2017-10-22 23:24] VITALS: BP 113/65; PULSE 101; TEMP 36.8; O2SAT 91
[2017-10-22] MEDS: LORAZEPAM INJ 0.5 MG in SYRINGE 0.75 ML IV PRN (23:48)
[2017-10-23] MEDS: SODIUM CHLORIDE 0.9% 1000ML 1,000 ML IV SCH (03:15)
[2017-10-23 06:13] LABS: BASO % 0.1 %; BASO ABS # 0.01 K/uL (0-0.2); EOS % 1.6 %; EOS ABS # 0.11 K/uL (0-0.5); HEMATOCRIT 43.1 % (42-52); HEMOGLOBIN 14.6 g/dL (14.0-18.0); IG# 0.01 K/uL (0.00-0.02); LYMPH % 13.9 %; LYMPH ABS # 0.96 K/uL (1.2-3.4); MEAN CELL VOLUME 89.4 fL (80-100); MEAN CORPUSCULAR HEMOGLOBIN 30.3 pg (25-34); MEAN CORPUSCULAR HGB CONC 33.9 g/dl (32-36); MEAN PLATELET VOLUME 9.6 fL (7.4-10.4); MONO % 10.3 %; MONO ABS # 0.71 K/uL (0.11-0.59); NEUT ABS # 5.09 K/uL (1.4-6.5); PLATELET COUNT 186 K/uL (130-400); RED CELL DISTRIBUTION WIDTH CV 13.3 % (11.5-14.5); RED CELL DISTRIBUTION WIDTH SD 43.5 fL (36.4-46.3); WHITE BLOOD COUNT 6.89 K/uL (4.8-10.8)
[2017-10-23 06:40] LABS: CALCIUM 8.1 mg/dl (8.5-10.1); POTASSIUM 3.7 mmol/L (3.5-5.1)
[2017-10-23 06:52] VITALS: BP 146/83; PULSE 72; TEMP 36.7; O2SAT 90
--- NOTE | 2017-10-23 07:08 | Surgery Progress Note ---
Surgery Progress Note Date of Service October 23, 2017. Subjective Post OP Day: HD 2 + feeling well, + bowel movement, + flatus, + diet (npo), No complaints, No nausea, No vomiting Objective Vital Signs: Date Time Temp Pulse Resp B/P (MAP) Pulse Ox O2 Delivery O2 Flow Rate FiO2 10/23/17 06:52 36.7 72 16 146/83 (104) 90 Room Air 10/22/17 23:24 36.8 101 18 113/65 (81) 91 Room Air 10/22/17 19:15 Room Air 10/22/17 16:20 Room Air 10/22/17 16:10 37.0 68 18 158/71 (100) 95 Room Air 10/22/17 15:00 73 16 124/75 96 Room Air 10/22/17 13:40 94 Room Air 10/22/17 13:00 74 18 10/22/17 12:33 77 10/22/17 12:04 94 Room Air 10/22/17 11:10 36.7 82 16 133/88 94 Room Air General Appearance: WD/WN, no apparent distress Head: normocephalic, atraumatic Neck: supple, no adenopathy, trachea midline Respiratory/Chest: chest non-tender, lungs clear Cardiovascular: regular rate, rhythm, no gallop, no murmur Abdomen: normal bowel sounds, non tender, non distended, soft, + splenomegaly ( working; pink and patent), + pertinent finding Extremities: non-tender, no pedal edema Laboratory Results: Results Past 24 Hours Test 10/22/17 12:00 10/22/17 17:15 10/23/17 05:18 Range/Units White Blood Count 12.56 6.89 4.8-10.8 K/uL Red Blood Count 5.67 4.82 4.7-6.1 M/uL Hemoglobin 17.6 14.6 14.0-18.0 g/dL Hematocrit 49.5 43.1 42-52 % Mean Corpuscular Volume 87.3 89.4 80-100 fL Mean Corpuscular Hemoglobin 31.0 30.3 25-34 pg Mean Corpuscular Hemoglobin Concent 35.6 33.9 32-36 g/dl Platelet Count 221 186 130-400 K/uL Mean Platelet Volume 10.0 9.6 7.4-10.4 fL Neutrophils (%) (Auto) 78.0 74.0 % Lymphocytes (%) (Auto) 11.9 13.9 % Monocytes (%) (Auto) 8.5 10.3 % Eosinophils (%) (Auto) 1.1 1.6 % Basophils (%) (Auto) 0.2 0.1 % Neutrophils # (Auto) 9.80 5.09 1.4-6.5 K/uL Lymphocytes # (Auto) 1.49 0.96 1.2-3.4 K/uL Monocytes # (Auto) 1.07 0.71 0.11-0.59 K/uL Eosinophils # (Auto) 0.14 0.11 0-0.5 K/uL Basophils # (Auto) 0.02 0.01 0-0.2 K/uL RDW Standard Deviation 42.2 43.5 36.4-46.3 fL RDW Coefficient of Variation 13.3 13.3 11.5-14.5 % Immature Granulocyte % (Auto) 0.3 0.1 % Immature Granulocyte # (Auto) 0.04 0.01 0.00-0.02 K/uL Prothrombin Time 10.4 9.0-12.0 SECONDS Prothromb Time International Ratio 1.0 0.9-1.1 Activated Partial Thromboplast Time 28.2 21.0-31.0 SECONDS Partial Thromboplastin Ratio 1.1 Sodium Level 137 140 136-145 mmol/L Potassium Level 3.7 3.7 3.5-5.1 mmol/L Chloride Level 105 111 98-107 mmol/L Carbon Dioxide Level 25 22 21-32 mmol/L Anion Gap 7.0 7.0 3-11 mmol/L Blood Urea Nitrogen 13 16 7-18 mg/dl Creatinine 1.23 1.00 0.60-1.40 mg/dl Est Creatinine Clear Calc Drug Dose 49.3 60.6 ml/min Estimated GFR () 66.6 85.6 Estimated GFR (Non- 57.5 73.8 BUN/Creatinine Ratio 10.6 16.1 10-20 Random Glucose 114 95 70-99 mg/dl Calcium Level 10.2 8.1 8.5-10.1 mg/dl Phosphorus Level 2.6 2.5-4.9 mg/dl Magnesium Level 2.4 1.8-2.4 mg/dl Total Bilirubin 0.7 0.2-1 mg/dl Direct Bilirubin 0.2 0-0.2 mg/dl Aspartate Amino Transf (AST/SGOT) 15 15-37 U/L Alanine Aminotransferase (ALT/SGPT) 27 12-78 U/L Alkaline Phosphatase 98 45-117 U/L Total Creatine Kinase 87 39-308 U/L Creatine Kinase MB 2.4 0.5-3.6 ng/ml Creatine Kinase MB Ratio 2.8 0-3.0 Troponin I < 0.015 0-0.045 ng/ml Pro-B-Type Natriuretic Peptide 123 0-900 pg/ml Total Protein 9.1 6.4-8.2 gm/dl Albumin 4.3 3.4-5.0 gm/dl Lipase 99 73-393 U/L Thyroid Stimulating Hormone (TSH) 0.887 0.300-4.500 uIu/ml Urine Color DK YELLOW Urine Appearance CLOUDY CLEAR Urine pH 5.0 4.5-7.5 Urine Specific [place] 1.024 1.000-1.030 Urine Protein NEG NEG Urine Glucose (UA) NEG NEG Urine Ketones TRACE NEG Urine Occult Blood NEG NEG Urine Nitrite NEG NEG Urine Bilirubin NEG NEG Urine Urobilinogen NEG NEG Urine Leukocyte Esterase NEG NEG Urine WBC (Auto) 1-5 0-5 /hpf Urine RBC (Auto) 0-4 0-4 /hpf Urine Hyaline Casts (Auto) 0 0-5 /lpf Urine Epithelial Cells (Auto) 10-20 0-5 /lpf Urine Bacteria (Auto) NEG NEG Urine Mucus PRESENT NONE PRSENT Assessment & Plan partial SBO resolved -begin diet -ambulate advance diet as tolerated -will sign off
[2017-10-23] MEDS: NICOTINE 14 MG/24 HR TDSY TD SCH (07:38)
--- NOTE | 2017-10-23 08:48 | DIAGNOSTIC IMAGING REPORT ---
KUB HISTORY: Small bowel obstruction. Follow-up. COMPARISON: Abdomen and pelvis CT 10/22/2017. FINDINGS: There is a right lower quadrant ostomy present. Dilated loops of small bowel predominantly along the right side the abdomen persist. These measure up to 4.7 cm diameter. No renal calculi. No ureteral calculi. No pneumoperitoneum or pneumatosis. IMPRESSION: No change in the small bowel obstruction pattern. Electronically signed by: Luis E Salomon M.D. 10/23/2017 8:47 AM Dictated Date/Time: 10/23/2017 8:46 AM
[2017-10-23] MEDS ORDERED: FAMOTIDINE IV INJ 20 MG in DEXTROSE 5% 100ML 100 ML IV SCH (10:30)
[2017-10-23] MEDS: FAMOTIDINE IV INJ 20 MG in SYRINGE 3 ML IV SCH ×2 (10:44→21:05)
--- NOTE | 2017-10-23 10:45 | Hospitalist Progress Note ---
Hospitalist Progress Note Date of Service October 23, 2017. (Shannon Boucher CRNP) Subjective Pt evaluation today including: conversation w/ patient, chart review, lab review Voiding: no voiding problems 72-year-old male with history of colorectal cancer; colectomy and end ileostomy. Admitted for SBO. Patient denies pain this morning. Denies nausea vomiting. Reports 8 BMs since yesterday. Stool noted to be liquid. He states his stool has always been liquid prior to admission. Constitutional: No fever, No chills Eyes: No eye pain Respiratory: No shortness of breath Cardiovascular: No chest pain Abdomen: No pain, No nausea, No vomiting, No constipation Musculoskeletal: No swelling Heme: No abnormal bleeding/bruising (Shannon Boucher CRNP) Objective Vital Signs Date Time Temp Pulse Resp B/P (MAP) Pulse Ox O2 Delivery O2 Flow Rate FiO2 10/23/17 07:15 Room Air 10/23/17 06:52 36.7 72 16 146/83 (104) 90 Room Air 10/22/17 23:24 36.8 101 18 113/65 (81) 91 Room Air 10/22/17 19:15 Room Air 10/22/17 16:20 Room Air 10/22/17 16:10 37.0 68 18 158/71 (100) 95 Room Air 10/22/17 15:00 73 16 124/75 96 Room Air 10/22/17 13:40 94 Room Air 10/22/17 13:00 74 18 10/22/17 12:33 77 10/22/17 12:04 94 Room Air 10/22/17 11:10 36.7 82 16 133/88 94 Room Air (Shannon Boucher CRNP) Physical Exam General Appearance: no apparent distress Eyes: normal inspection ENT: hearing grossly normal Neck: no JVD Respiratory/Chest: lungs clear, normal breath sounds, no respiratory distress, no accessory muscle use Cardiovascular: regular rate, rhythm Abdomen: soft, + pertinent finding (non-tender; abdominal sounds present in all four quadrants ) Extremities: + pertinent finding (no swelling noted ) Neurologic/Psychiatric: alert, normal mood/affect, oriented x 3 Skin: normal color (Shannon Boucher CRNP) Laboratory Results Last 24 Hours Test 10/22/17 12:00 5/18/18 17:15 10/23/17 05:18 White Blood Count 12.56 K/uL 6.89 K/uL Red Blood Count 5.67 M/uL 4.82 M/uL Hemoglobin 17.6 g/dL 14.6 g/dL Hematocrit 49.5 % 43.1 % Mean Corpuscular Volume 87.3 fL 89.4 fL Mean Corpuscular Hemoglobin 31.0 pg 30.3 pg Mean Corpuscular Hemoglobin Concent 35.6 g/dl 33.9 g/dl Platelet Count 221 K/uL 186 K/uL Mean Platelet Volume 10.0 fL 9.6 fL Neutrophils (%) (Auto) 78.0 % 74.0 % Lymphocytes (%) (Auto) 11.9 % 13.9 % Monocytes (%) (Auto) 8.5 % 10.3 % Eosinophils (%) (Auto) 1.1 % 1.6 % Basophils (%) (Auto) 0.2 % 0.1 % Neutrophils # (Auto) 9.80 K/uL 5.09 K/uL Lymphocytes # (Auto) 1.49 K/uL 0.96 K/uL Monocytes # (Auto) 1.07 K/uL 0.71 K/uL Eosinophils # (Auto) 0.14 K/uL 0.11 K/uL Basophils # (Auto) 0.02 K/uL 0.01 K/uL RDW Standard Deviation 42.2 fL 43.5 fL RDW Coefficient of Variation 13.3 % 13.3 % Immature Granulocyte % (Auto) 0.3 % 0.1 % Immature Granulocyte # (Auto) 0.04 K/uL 0.01 K/uL Prothrombin Time 10.4 SECONDS Prothromb Time International Ratio 1.0 Activated Partial Thromboplast Time 28.2 SECONDS Partial Thromboplastin Ratio 1.1 Sodium Level 137 mmol/L 140 mmol/L Potassium Level 3.7 mmol/L 3.7 mmol/L Chloride Level 105 mmol/L 111 mmol/L Carbon Dioxide Level 25 mmol/L 22 mmol/L Anion Gap 7.0 mmol/L 7.0 mmol/L Blood Urea Nitrogen 13 mg/dl 16 mg/dl Creatinine 1.23 mg/dl 1.00 mg/dl Est Creatinine Clear Calc Drug Dose 49.3 ml/min 60.6 ml/min Estimated GFR () 66.6 85.6 Estimated GFR (Non- 57.5 73.8 BUN/Creatinine Ratio 10.6 16.1 Random Glucose 114 mg/dl 95 mg/dl Calcium Level 10.2 mg/dl 8.1 mg/dl Phosphorus Level 2.6 mg/dl Magnesium Level 2.4 mg/dl Total Bilirubin 0.7 mg/dl Direct Bilirubin 0.2 mg/dl Aspartate Amino Transf (AST/SGOT) 15 U/L Alanine Aminotransferase (ALT/SGPT) 27 U/L Alkaline Phosphatase 98 U/L Total Creatine Kinase 87 U/L Creatine Kinase MB 2.4 ng/ml Creatine Kinase MB Ratio 2.8 Troponin I < 0.015 ng/ml Pro-B-Type Natriuretic Peptide 123 pg/ml Total Protein 9.1 gm/dl Albumin 4.3 gm/dl Lipase 99 U/L Thyroid Stimulating Hormone (TSH) 0.887 uIu/ml Urine Color DK YELLOW Urine Appearance CLOUDY Urine pH 5.0 Urine Specific [place] 1.024 Urine Protein NEG Urine Glucose (UA) NEG Urine Ketones TRACE Urine Occult Blood NEG Urine Nitrite NEG Urine Bilirubin NEG Urine Urobilinogen NEG Urine Leukocyte Esterase NEG Urine WBC (Auto) 1-5 /hpf Urine RBC (Auto) 0-4 /hpf Urine Hyaline Casts (Auto) 0 /lpf Urine Epithelial Cells (Auto) 10-20 /lpf Urine Bacteria (Auto) NEG Urine Mucus PRESENT (Shannon Boucher CRNP) Assessment and Plan 1. SBO Improving. General surgery signed off. Advancing diet today. Patient noted to have liquid dark stool in colostomy bag this morning. Will send for C. difficile. Currently not on any antibiotics at this time. No other indication for antibiotics. We will also change pantoprazole to famotidine. 2. DVT prophylaxis Continue Lovenox. Renal function stable. 3. Disposition Possible d/c home tomorrow if tolerating PO. Please refer to Dr. Florian addendum for further recommendations. Discharge planning: home (Shannon Boucher CRNP) Reviewed: Pt Seen/Exam by Me (Shobha Florian, ) History Pt is feeling better. "Something just suddenly let loose" and he noted stool in his ostomy. States the stool is watery, but this is his usual. States that the output appears as it usually does. He tolerated the PO he took, but appetite was low. Denies chest pain, SOB. Feels his distention is resolved. Agree with HPI/ROS as noted by PA. (Shobha Florian, DO) General Appearance: WD/WN, no apparent distress Eye Exam: bilateral eye normal inspection, bilateral eye other (nml sclera) Respiratory: normal breath sounds, no respiratory distress Cardiovascular: normal peripheral pulses, regular rate, rhythm Gastrointestinal: non tender, soft Extremities: non-tender, no pedal edema Neurologic/Psychiatric: alert, oriented x 3 Skin Characteristics: normal color, warm/dry (Shobha Florian, DO) Assessment/Plan Agree with plan as outlined above. SBO improving clinically however KUB is unchanged Low appetite Monitor on IVF and increase PO as able (Shobha Florian, DO)
[2017-10-23] MEDS ORDERED: PANTOprazole INJ 40 MG in SYRINGE 0 ML IV SCH (11:00)
[2017-10-23 15:20] VITALS: BP 149/82; PULSE 80; TEMP 36.8; O2SAT 96
[2017-10-23] MEDS: ENOXAPARIN 40 MG/0.4 ML SYR SQ SCH (21:05)
[2017-10-23 22:34] VITALS: BP 113/71; PULSE 76; TEMP 36.9; O2SAT 93
[2017-10-23] MEDS: LORAZEPAM INJ 0.5 MG in SYRINGE 0.75 ML IV PRN (23:03)
[2017-10-24 06:45] LABS: CREATININE 1.08 mg/dl (0.60-1.40); POTASSIUM 3.6 mmol/L (3.5-5.1)
[2017-10-24] MEDS: NICOTINE 14 MG/24 HR TDSY TD SCH (09:19)
[2017-10-24] MEDS: FAMOTIDINE IV INJ 20 MG in SYRINGE 3 ML IV SCH (09:30)
--- NOTE | 2017-10-24 10:05 | Hospitalist Progress Note ---
Hospitalist Progress Note Date of Service October 24, 2017. (Shannon Boucher CRNP) Subjective Pt evaluation today including: conversation w/ patient, chart review, lab review Voiding: no voiding problems 72 yo male with SBO. Pt feels improved today. Denies abdominal pain, nausea, or vomiting. Tolerating full liquids. Continues to have liquid BMs in ostomy bag. Constitutional: No fever, No chills Respiratory: No shortness of breath Cardiovascular: No chest pain Abdomen: No pain, No nausea, No vomiting, No constipation Male : No slowing stream Heme: No abnormal bleeding/bruising Skin: No rash (Shannon Boucher CRNP) Objective Vital Signs Date Time Temp Pulse Resp B/P (MAP) Pulse Ox O2 Delivery O2 Flow Rate FiO2 10/24/17 07:57 Room Air 10/23/17 23:30 Room Air 10/23/17 22:34 36.9 76 17 113/71 (85) 93 Room Air 10/23/17 15:20 36.8 80 18 149/82 (104) 96 Room Air (Shannon Boucher CRNP) Physical Exam General Appearance: no apparent distress Eyes: normal inspection ENT: hearing grossly normal Neck: supple, no JVD Respiratory/Chest: lungs clear, normal breath sounds, no respiratory distress, no accessory muscle use Cardiovascular: regular rate, rhythm, no JVD Abdomen: non tender, soft, + pertinent finding (viable layton colored stoma ) Extremities: normal inspection Neurologic/Psychiatric: alert, normal mood/affect, oriented x 3 Skin: normal color (Shannon Boucher CRNP) Laboratory Results Last 24 Hours Test 10/24/17 05:48 Sodium Level 138 mmol/L Potassium Level 3.6 mmol/L Chloride Level 110 mmol/L Carbon Dioxide Level 22 mmol/L Anion Gap 6.0 mmol/L Blood Urea Nitrogen 16 mg/dl Creatinine 1.08 mg/dl Est Creatinine Clear Calc Drug Dose 56.1 ml/min Estimated GFR () 78.0 Estimated GFR (Non- 67.3 BUN/Creatinine Ratio 15.1 Random Glucose 96 mg/dl Calcium Level 9.0 mg/dl (Shannon Boucher CRNP) Assessment and Plan SBO Improving. Pt has had several liquid BMs in ostomy bag. General surgery signed off. Will advance to a mechanical soft diet for breakfast. DVT prophylaxis Continue Lovenox. Renal function stable. Disposition Likely d/c home later today if tolerating mechanical soft diet. Pt discussed with Dr. Florian. See her addendum for further recommendations. Discharge planning: home (Shannon Boucher CRNP) Reviewed: Pt Seen/Exam by Me (Shobha Florian, ) History See d/c summary for details. (Shobha Florian, ) Assessment/Plan Agree with plan as outlined above. SBO improving clinically however KUB is unchanged Low appetite Monitor on IVF and increase PO as able (Shobha Florian, DO)
[2017-10-24] MEDS ORDERED: [UNRECOGNIZED DRUG - CODE] PO (11:31)
[2017-10-24] MEDS ORDERED: CALC500C3 PO (11:31)
--- NOTE | 2017-10-24 11:44 | Discharge Instructions ---
Discharge Instructions Date of Service October 24, 2017. Admission Reason for Admission: SBO Discharge Discharge Diagnosis / Problem: Small Bowel Obstruction Discharge Goals Goal(s): Improve nutritional status Activity Recommendations Activity Limitations: as noted below Lifting Limitations: none Exercise/Sports Limitations: none May Resume Sexual Activity: when tolerated Shower/Bathe: no limitations Driving or Machine Use: no limitations . Current Hospital Diet Patient's current hospital diet: Regular Diet Discharge Diet Recommended Diet: Regular Diet Pending Studies Studies pending at discharge: no Medical Emergencies . Who to Call and When: Medical Emergencies: If at any time you feel your situation is an emergency, please call 911 immediately. . Non-Emergent Contact Non-Emergency issues call your: Primary Care Provider Call Non-Emergent contact if: temperature is above 101.5, your pain is not controlled, your pain is worsening, your pain is unusual for you, your pain is concerning you, you have any medication questions . . "Provider Documentation" section prepared by Shannon Boucher. .
--- NOTE | 2017-10-24 12:55 | Discharge Summary ---
Discharge Summary Date of Service October 24, 2017. Discharge Summary Admission Date: October 22, 2017 at 14:20 Discharge Date: October 24, 2017 Discharge Disposition: Home Principal Diagnosis: Small bowel obstruction Problems/Secondary Diagnoses: Colorectal cancer with ostomy Depression Consultations: General Surgery Medication Reconciliation Continued Medications: Calcium Carbonate (Tums) 500 Mg Chew 1250 MG PO TID PRN for HEARTBURN Mirtazapine (Mirtazapine) 15 Mg Brittny 15 MG PO HS Trazodone HCl (Trazodone HCl) 150 Mg Tab 150 MG PO HS Discharge Exam Pt evaluation today including: conversation w/ patient, chart review, lab review Voiding: no voiding problems 72 yo male with SBO. Pt feels improved today. Denies abdominal pain, nausea, or vomiting. Tolerating full liquids. Continues to have liquid BMs in ostomy bag. Review of Systems: Constitutional: No fever, No chills Respiratory: No shortness of breath Cardiovascular: No chest pain Abdomen: No pain, No nausea, No vomiting, No constipation Genitourinary - Male: No urinary retention Hematologic / Lymphatic: No abnormal bleeding/bruising Physical Exam: General Appearance: no apparent distress Eyes: normal inspection ENT: hearing grossly normal Neck: supple, no JVD Respiratory/Chest: lungs clear, normal breath sounds, no respiratory distress, no accessory muscle use Cardiovascular: regular rate, rhythm, no JVD Abdomen / GI: non tender, soft, + pertinent finding (ostomy layton colored and viable ) Extremities: normal inspection Neurologic/Psychiatric: alert, normal mood/affect, oriented x 3 Skin: normal color Hospital Course SBO KUB showed SBO. Pt clinically improving. Pt has had several liquid BMs in ostomy bag. General surgery signed off. Will advance to a mechanical soft diet for breakfast. Total Time Spent: Greater than 30 minutes This includes examination of the patient, discharge planning, medication reconciliation, and communication with other providers. Discharge Instructions Please refer to the electronic Patient Visit Report (Discharge Instructions) for additional information. Follow-Up PCP in 1 week. Additional Copies To Kingston Fairbanks M.D. Reviewed: Pt Seen/Exam by Me History Pt is doing well. Ongoing ostomy output that is at his baseline. No further abd pain or distention. No n/v. Has been able to eat more today and tolerating it well. Denies chest pain, SOB. Agree with HPI/ROS as noted by PA. General Appearance: WD/WN, no apparent distress Eye Exam: bilateral eye normal inspection, bilateral eye other (nml sclera) Respiratory: normal breath sounds, no respiratory distress Cardiovascular: normal peripheral pulses, regular rate, rhythm Gastrointestinal: non tender, soft Extremities: non-tender, no pedal edema Neurologic/Psychiatric: alert, normal mood/affect, oriented x 3 Skin Characteristics: normal color, warm/dry Assessment/Plan Agree with plan as outlined above. SBO resolved clinically Appetite and ostomy output are at baseline
[2017-10-24 13:03] VITALS: BP 113/71; PULSE 76; TEMP 36.9; O2SAT 93
== END 2017-10-24 13:53 | disposition home or self-care (01) | DRG 390 ==
LOC: C.EDB 11:08 → C.MSN 14:20 → ENRESERV 15:00
PROVIDERS: ADMIT Internal Medicine; ATTEND Family Medicine
DX: K56.609 Unspecified intestinal obstruction, unspecified as to partial versus complete obstruction (principal); G47.00 Insomnia, unspecified; F32.9 Major depressive disorder, single episode, unspecified; F17.200 Nicotine dependence, unspecified, uncomplicated; Z66 Do not resuscitate; Z79.899 Other long term (current) drug therapy; Z93.3 Colostomy status; Z85.038 Personal history of other malignant neoplasm of large intestine